=== PATIENT | male | born 1960 | race Caucasian/White ===

== ENCOUNTER 2018-04-11 18:00 | Emergency (ER) | payer OTHER ==
[~2018-04-11] VITALS: Ht 180.3 cm; Wt 83.9 kg
[2018-04-11 18:13] VITALS: BP_SYST 140
--- NOTE | 2018-04-11 18:13 | NUR ---
Patient triaged and placed in waiting room. VSS and patient appears in no acute distress at this time. Accompanied by self, awaiting available bed, and MD notified of need for MSE.
--- NOTE | 2018-04-11 19:24 | NUR ---
Patient to ER bed h1 to gown for evaluation. Side rails up.
--- NOTE | 2018-04-11 19:34 | NUR ---
Pt placed to ER bed 03. Lac and abrasion to top of head s/p glass brick falling 3.5" from a shelf. Pt states that he was in a warehouse and glass brick was on a shelf, he bumped shelves with shoulder causing brick to to fall onto head. 2 longitudinal lacs to head. Anterior lac superficial. Posterior lac with underlying tissues visible, both measuring approx 2 cm in length. Pt denies LOC, no N/V, no headache, no drainage from ears or nose, no H/A, AAOx4. Bleeding controlled with pressure dsg.
[2018-04-11] MEDS ORDERED: LIDOCAINE 2%, 20 ML MDV INJ ONE (20:15)
--- NOTE | 2018-04-11 20:15 | NUR ---
Dr. Lomax at bedside to apply angelica to laceration.
[2018-04-11] MEDS ORDERED: LIDOCAINE 1%, 20 ML MDV 0 ML ONE (20:22)
[2018-04-11 20:35] VITALS: BP_SYST 140
--- NOTE | 2018-04-11 20:35 | NUR ---
Patient given written and verbal discharge instructions and verbalizes understanding. ER MD discussed with patient the results and treatment provided. Patient in stable condition. ID arm band removed. No Rx given. Patient educated on pain management and to follow up with PMD. Pain Scale 0/10. Opportunity for questions provided and answered. Medication side effect fact sheet provided.
== END 2018-04-11 20:35 | disposition home or self-care (01) ==
LOC: SED 18:00
DX: S01.01XA Laceration without foreign body of scalp, initial encounter (principal); W20.8XXA Other cause of strike by thrown, projected or falling object, initial encounter; Y93.89 Activity, other specified; Y92.69 Other specified industrial and construction area as the place of occurrence of the external cause; Y99.8 Other external cause status
CPT/HCPCS: 12002; 99284; 70450; J2001

== ENCOUNTER 2018-04-24 12:19 | Emergency (ER) | payer OTHER ==
[~2018-04-24] VITALS: Ht 180.3 cm; Wt 83.9 kg
[2018-04-24 12:20] VITALS: BP_SYST 121
[2018-04-24 13:00] VITALS: BP_SYST 121
== END 2018-04-24 13:00 | disposition home or self-care (01) ==
LOC: SED 12:19
DX: S01.01XD Laceration without foreign body of scalp, subsequent encounter (principal); R03.0 Elevated blood-pressure reading, without diagnosis of hypertension; W20.8XXD Other cause of strike by thrown, projected or falling object, subsequent encounter
CPT/HCPCS: 99281